=== PATIENT | male | born 1975 | race Caucasian/White ===

== ENCOUNTER 2016-10-29 14:04 | Emergency (ER) | payer BC ==
[2016-10-29 15:27] LABS: HEMOGLOBIN 14.8 gm/dl (14.0-17.5); RED BLOOD COUNT 5.27 M/UL (4.20-5.50); WHITE BLOOD COUNT 8.6 K/UL (4.5-11.0)
[2016-10-29 16:01] LABS: BUN/CREATININE RATIO 30 (0-10)
== END 2016-10-29 18:12 | disposition home or self-care (01) ==
LOC: ER1 14:04
PROVIDERS: Emergency Medicine
DX: M79.602 Pain in left arm (principal); M25.512 Pain in left shoulder; R05 Cough; R09.89 Other specified symptoms and signs involving the circulatory and respiratory systems
CPT/HCPCS: 36415; 71010; 80053; 82550; 82553; 83874; 84484; 85025; 85379; 93005; 99284

== ENCOUNTER 2020-12-03 07:23 | Observation (INO) | payer BC ==
[~2020-12-03] VITALS: Ht 175.3 cm; Wt 75.8 kg
[~2020-12-03 07:23] MED LIST: IBUPROFEN800 MG PO; NORCO 7.5-3251 EACH PO; ZANTAC150 MG PO
[2020-12-03 08:06] LABS: HEMOGLOBIN 13.8 gm/dl (14.0-17.5); RED BLOOD COUNT 5.06 M/UL (4.20-5.50); WHITE BLOOD COUNT 9.4 K/UL (4.5-11.0)
[2020-12-03 08:33] LABS: BUN/CREATININE RATIO 18 (0-10)
[2020-12-03] MEDS ORDERED: GABAPENTIN300 MG PO (10:56)
[2020-12-03] MEDS ORDERED: VISTARIL25 MG PO (12:06)
[2020-12-03] MEDS ORDERED: ELAVIL 50 MG TA50 MG PO (12:06)
[2020-12-03] MEDS ORDERED: CYMBALTA 20 MG20 MG PO (12:06)
[2020-12-03] MEDS ORDERED: LEVOTHYROXINE25 MC1 PO (12:07)
[2020-12-03] MEDS ORDERED: LISINOPRIL20 MG PO (12:07)
[2020-12-03] MEDS ORDERED: PREDNISONE 10 M10 MG PO (12:08)
[2020-12-03] MEDS ORDERED: PAXIL 20 MG TAB20 MG PO (12:08)
[2020-12-03] MEDS ORDERED: ZANAFLEX 4 MG TA4 MG PO (12:09)
[2020-12-04 05:58] LABS: HEMOGLOBIN 13.6 gm/dl (14.0-17.5); RED BLOOD COUNT 4.75 M/UL (4.20-5.50); WHITE BLOOD COUNT 7.4 K/UL (4.5-11.0)
[2020-12-04 06:18] LABS: BUN/CREATININE RATIO 15 (0-10)
== END 2020-12-04 16:09 | disposition home or self-care (01) ==
LOC: ER1 07:23 → CDU 11:25 → MED SURG 4 15:07
PROVIDERS: Emergency Medicine; Physician Assistant Medical; ADMIT Internal Medicine
DX: R55 Syncope and collapse (principal); E87.1 Hypo-osmolality and hyponatremia; R07.9 Chest pain, unspecified; I11.9 Hypertensive heart disease without heart failure; F41.9 Anxiety disorder, unspecified; F32.9 Major depressive disorder, single episode, unspecified; E03.9 Hypothyroidism, unspecified; G62.9 Polyneuropathy, unspecified; M54.9 Dorsalgia, unspecified; G89.29 Other chronic pain; Z20.822 Contact with and (suspected) exposure to COVID-19; I49.8 Other specified cardiac arrhythmias; I08.3 Combined rheumatic disorders of mitral, aortic and tricuspid valves
CPT/HCPCS: ECHO; 36415; 70450; 71045; 80048; 80053; 82550; 82553; 83735; 83874; 84484; 85025; 85027; 85379; 93005; 93306; 96372; 99285; G0378; J1650; J7030; Q0177; U0002

== ENCOUNTER → 2021-04-07 | Outpatient (CLI) | payer BC ==
[~2021-04-07] MED LIST changes: +CYMBALTA 20 MG20 MG PO; +ELAVIL 50 MG TA50 MG PO; +GABAPENTIN300 MG PO; +LEVOTHYROXINE25 MC1 PO; +LISINOPRIL20 MG PO; +PAXIL 20 MG TAB20 MG PO; +PREDNISONE 10 M10 MG PO; +VISTARIL25 MG PO; +ZANAFLEX 4 MG TA4 MG PO
== END ==
LOC: KOH-I 12:20
DX: R05.9 Cough, unspecified (principal); M54.2 Cervicalgia; M54.9 Dorsalgia, unspecified
CPT/HCPCS: 71046; 72040; 72070; 72100

== ENCOUNTER → 2021-04-27 | Outpatient (CLI) | payer BC | LOC: KOH-I 04-25 14:30 | DX: M54.2 Cervicalgia (principal); M47.812 Spondylosis without myelopathy or radiculopathy, cervical region | CPT/HCPCS: 72141 ==

== ENCOUNTER 2021-11-21 18:51 | Emergency (ER) | payer OTHER ==
[2021-11-21 19:25] LABS: HEMOGLOBIN 13.9 gm/dl (14.0-17.5); RED BLOOD COUNT 4.84 M/UL (4.20-5.50); WHITE BLOOD COUNT 6.2 K/UL (4.5-11.0)
[2021-11-21 19:43] LABS: BUN/CREATININE RATIO 12 (0-10)
== END 2021-11-21 22:06 | disposition home or self-care (01) ==
LOC: ER1 18:51
PROVIDERS: Physician Assistant Medical
DX: R07.9 Chest pain, unspecified (principal); R06.02 Shortness of breath; R68.83 Chills (without fever); R00.0 Tachycardia, unspecified; I10 Essential (primary) hypertension; Z20.822 Contact with and (suspected) exposure to COVID-19
CPT/HCPCS: 71045; 80053; 82550; 82553; 83605; 84484; 85025; 85379; 87040; 93005; 99285; Q9967; U0002

== ENCOUNTER 2021-11-24 18:10 | Emergency (ER) | payer OTHER ==
[2021-11-24 19:50] LABS: HEMOGLOBIN 12.9 gm/dl (14.0-17.5); RED BLOOD COUNT 4.5 M/UL (4.20-5.50); WHITE BLOOD COUNT 5.4 K/UL (4.5-11.0)
[2021-11-24 20:17] LABS: BUN/CREATININE RATIO 11 (0-10)
[2021-11-24] MEDS ORDERED: MEDROL DOSEPAK 24 MG PO (23:37)
== END 2021-11-24 23:45 | disposition home or self-care (01) ==
LOC: ER1 18:10
PROVIDERS: Physician Assistant
DX: R07.89 Other chest pain (principal); F41.9 Anxiety disorder, unspecified; I10 Essential (primary) hypertension; E07.9 Disorder of thyroid, unspecified; Z20.822 Contact with and (suspected) exposure to COVID-19; Z51.81 Encounter for therapeutic drug level monitoring
CPT/HCPCS: 0240U; 71045; 80053; 82550; 82553; 83605; 83735; 84439; 84443; 84484; 85025; 85610; 87040; 93005; 99285; J1100

== ENCOUNTER 2021-12-01 10:45 | Observation (INO) | payer OTHER ==
[~2021-12-01] VITALS: Ht 175.3 cm; Wt 80.7 kg
[~2021-12-01 10:45] MED LIST changes: +AMITRIPTYLINE100 MG PO; -ELAVIL 50 MG TA50 MG PO; -GABAPENTIN300 MG PO; +GABAPENTIN800 MG PO; -LEVOTHYROXINE25 MC1 PO; +LEVOTHYROXINE25 MCG PO; -LISINOPRIL20 MG PO; +LISINOPRIL40 MG PO; +MEDROL DOSEPAK 24 MG PO
[2021-12-01 13:07] LABS: HEMOGLOBIN 13.8 gm/dl (14.0-17.5); RED BLOOD COUNT 4.79 M/UL (4.20-5.50); WHITE BLOOD COUNT 7.2 K/UL (4.5-11.0)
[2021-12-01 13:38] LABS: BUN/CREATININE RATIO 15 (0-10)
[2021-12-01] MEDS ORDERED: CITALOPRAM HBR20 MG PO (15:15)
[2021-12-01] MEDS ORDERED: FLOMAX 0.4 MG0.4 MG PO (15:15)
[2021-12-01] MEDS ORDERED: DULOXETINE HCL20 MG PO (15:16)
[2021-12-01] MEDS ORDERED: VITAMIN B-122500 MCG SL (15:16)
[2021-12-01] MEDS ORDERED: VITAMIN C500 M4 PO (15:17)
[2021-12-01] MEDS ORDERED: MULTIVITAMIN1 EACH PO (15:17)
[2021-12-02 07:15] LABS: HEMOGLOBIN 12.7 gm/dl (14.0-17.5); RED BLOOD COUNT 4.45 M/UL (4.20-5.50); WHITE BLOOD COUNT 5.5 K/UL (4.5-11.0)
[2021-12-02 08:28] LABS: BUN/CREATININE RATIO 15 (0-10)
[2021-12-03 06:24] LABS: HEMOGLOBIN 11.5 gm/dl (14.0-17.5); RED BLOOD COUNT 4.04 M/UL (4.20-5.50)
[2021-12-03 06:25] LABS: WHITE BLOOD COUNT 9.7 K/UL (4.5-11.0)
[2021-12-03 06:45] LABS: BUN/CREATININE RATIO 11 (0-10)
[2021-12-03] MEDS ORDERED: OMNICEF 300 MG300 MG PO (08:32)
[2021-12-05 18:10] LABS: ORGANISM ID Not indicated. (.); SPECIMEN SOURCE Urine (.); STREPTOCOCCUS PNEUMONIAE AG Negative (Negative)
== END 2021-12-03 13:25 | disposition home or self-care (01) ==
LOC: ER1 10:45 → CDU 15:10 → MED SURG 4 15:10
PROVIDERS: Internal Medicine; Nurse Practitioner; Physician Assistant; ADMIT Internal Medicine Infectious Disease
DX: J18.9 Pneumonia, unspecified organism (principal); E87.6 Hypokalemia; E87.1 Hypo-osmolality and hyponatremia; F41.9 Anxiety disorder, unspecified; F32.A Depression, unspecified; G89.29 Other chronic pain; M54.2 Cervicalgia; I10 Essential (primary) hypertension; E03.9 Hypothyroidism, unspecified; G47.00 Insomnia, unspecified; Z20.822 Contact with and (suspected) exposure to COVID-19; Z79.52 Long term (current) use of systemic steroids; Z79.890 Hormone replacement therapy; Z79.899 Other long term (current) drug therapy
CPT/HCPCS: 0240U; 36415; 36600; 71045; 71046; 71250; 80048; 80053; 81001; 82550; 82553; 82803; 83605; 83735; 83880; 84484; 85025; 85027; 85652; 86140; 87040; 87086; 87278; 87899; 93005; 94640; 94664; 94760; 96361; 96365; 99285; G0378; J0456; J0696; J1335; J1956; J7030

== ENCOUNTER 2022-01-19 01:56 | Emergency (ER) | payer OTHER ==
[~2022-01-19 01:56] MED LIST changes: +CITALOPRAM HBR20 MG PO; +DULOXETINE HCL20 MG PO; +FLOMAX 0.4 MG0.4 MG PO; +MULTIVITAMIN1 EACH PO; +OMNICEF 300 MG300 MG PO; +VITAMIN B-122500 MCG SL; +VITAMIN C500 M4 PO
[2022-01-19 02:28] LABS: RED BLOOD COUNT 4.13 M/UL (4.20-5.50); WHITE BLOOD COUNT 5.9 K/UL (4.5-11.0)
[2022-01-19 03:11] LABS: BUN/CREATININE RATIO 10 (0-10)
== END 2022-01-19 05:23 | disposition other institution (70) ==
LOC: ER1 01:56
PROVIDERS: Emergency Medicine
DX: T42.6X1A Poisoning by other antiepileptic and sedative-hypnotic drugs, accidental (unintentional), initial encounter (principal); T43.211A Poisoning by selective serotonin and norepinephrine reuptake inhibitors, accidental (unintentional), initial encounter
CPT/HCPCS: 71045; 80053; 80307; 81001; 84439; 84443; 84484; 85025; 86140; 93005; 99284; G0480

== ENCOUNTER 2022-01-20 07:03 | Emergency (ER) | payer OTHER ==
[2022-01-20 08:12] LABS: WHITE BLOOD COUNT 16.9 K/UL (4.5-11.0)
[2022-01-20 08:13] LABS: RED BLOOD COUNT 5.01 M/UL (4.20-5.50)
[2022-01-20 08:43] LABS: BUN/CREATININE RATIO 11 (0-10)
== END 2022-01-20 12:37 | disposition home or self-care (01) ==
LOC: ER1 07:03
PROVIDERS: Student in an Organized Health Care Education/Training Program
DX: R10.9 Unspecified abdominal pain (principal); R11.2 Nausea with vomiting, unspecified; R19.7 Diarrhea, unspecified; I10 Essential (primary) hypertension; R10.817 Generalized abdominal tenderness
CPT/HCPCS: 80053; 80307; 81001; 82550; 82553; 83605; 83690; 84484; 85025; 96374; 99284; G0480; J2550; Q9967